=== PATIENT | female | born 1985 | race Caucasian/White ===

== ENCOUNTER 2023-10-19 10:38 | Emergency (ER) | payer OTHER, SELFPAY ==
[2023-10-19] VITALS (16 sets, daily range): BP systolic 96–109; BP diastolic 62–85; BMI 23.2
[2023-10-19 10:47] LABS: Glucose - Point of Care 81 mg/dl (70-99)
--- NOTE | 2023-10-19 10:54 | ED.GENMED ---
Addendum entered and electronically signed by Connie Anne PA-C 10/22/23 09:56:
10/22/23: Urine culture growing >100,000 E.coli. Spoke with Lashon from [facility] and relayed result. Result faxed to facility by special investigation unit investigator.
Original Note:
History of Present Illness
General
Chief Complaint: Change in Mental Status
Source: patient and ambulance crew
Exam Limitations: altered mental status
Time Seen by Provider: 10/19/23 10:41
Nursing documentation reviewed up to this point in time: agreed with
History of Present Illness
History of Present Illness:
Patient presents to ED from [facility], secondary to depressed mental status noted, shortly after receiving her morning medications, consisting of Klonopin, Benadryl, and buprenorphine. Upon arrival, patient is found to be
somnolent, but easily arousable. Patient denies use of any other illicit medications. Denies headache. Denies chest pain. Denies shortness of breath. Patient is complaining of chronic lower back pain. Denies nausea or vomiting. Denies recent
illness. Patient has been at [facility] for the past 3 days.
Review of Systems
Review of Systems
Allergies reviewed?: Yes
Unable to obtain full review of systems at this time due to: other (Altered mental status)
All Other Systems: Not applicable
Phy Exam
Physical Exam
Physical Exam:
Physical Exam
General: no apparent distress, not acutely ill. afebrile.
Neck: supple. no meningeal signs. normal posterior pharynx
Heart: s1/s2 regular rate and rhythm, no murmur. equal radial pulses.
Lungs: no acute respiratory distress. clear bilaterally
Abdomen: normal bowel sounds. not tender. no CVAT
Neuro: somnolent but easily arousable.. no focal neurological deficits
Skin: no rash. well healed, multiple punctured wounds noted over b/l LE, without active bleeding/drainage or surrounding erythema
Psychiatric: well kept. interactive and cooperative
Extremities: no edema. no calf tenderness.
Course
Orders/Labs/Results
Orders:
Orders
10/19/23 10:48
Test Result ONCE
10/19/23 11:47
Basic Metabolic Panel Urgent
Complete Blood Count/No Diff Urgent
Drug Screen, Urine [Urine Drug Abuse Screen] Urgent
Date Specimen was Collected: 10/19/23
Time Specimen was Collected: 11:15
Fentanyl, Urine Urgent
HCG, Serum Qualitative Screen Urgent
Magnesium Urgent
TSH Urgent
Urinalysis Reflex To Culture Urgent
Date Specimen was Collected: 10/19/23
Time Specimen was Collected: 11:15
Urine Microscopic Reflex Cult Urgent
Urine Culture Urgent
LAZARA Source: U
Specimen Description:
Date Specimen was Collected: 10/19/23
Time Specimen was Collected: 11:15
10/19/23 12:23
0.9% Sodium Chloride 1000 ml [Nss] 1,000 ml IV BOLUS
Abnormal Lab Results
10/19/23
11:47
WBC 4.2 L 10^3/uL
(4.8-10.8)
Hct 36.7 L %
(37.0-47.0)
Glucose 65 L mg/dl
(70-99)
Urine Nitrite (Reflex) Positive A
(Negative)
Urine Bacteria (Reflex) Many A
(Negative)
Ur Buprenorphine Positive H
(Negative)
Urine Fentanyl Screen Positive H
(Negative)
Ur Tricyclics Screen Positive H
(Negative)
Ur Amphetamines Screen Positive H
(Negative)
U Methamphetamines Scrn Positive H
(Negative)
Urine Cocaine Screen Positive H
(Negative)
10/19/23 11:47
10/19/23 11:47
Vital Signs
Initial and Last Documented VS:
Initial Vital Signs
BP
109/85
10/19/23 10:44
Last Documented Vital Signs
Temp Pulse Resp BP Pulse Ox
97.3 F 99 15 98/64 98
10/19/23 10:48 10/19/23 17:30 10/19/23 17:30 10/19/23 17:30 10/19/23 17:30
MDM/Problems Addressed
MDM/Problems Addressed:
Patient becoming more arousable during observation ED, without any complaints nor any neurological deficit noted. Patient remains hemodynamically stable. Patient was able to tolerate lunch and oral fluids. Patient will be observed further and if
becomes more lucid, patient may be discharged back to [facility]. Patient's presenting symptoms likely secondary to provided medications this a.m., which may need to be readdressed upon returning.
UA noted, which is likely contaminant, without any nitrites or leuk esterase. Will not start antibiotics at this time.
Urine culture pending.
*Critical Care Note
Total Time (30-74mins, 75-104mins- exclusive of procedures): Not Applicable
ED Attending Note
-
Portions of this chart may have been created with voice recognition software.� Occasional wrong word or��sound alike� substitutions may have occurred due to the inherent limitations of voice recognition software.
Discharge Plan
Departure
Patient Disposition: [facility]
Discharge Problem:
Altered mental status
Instructions: Altered Mental Status (DC)
Prescriptions:
No Action
clonazepam 0.5 mg Tablet
0.5 mg PO .TAPER
Patient Comments:
10/19/2023: 1mg BID from 10/15-10/17, 0.5mg BID from 10/18-10/20, 0.5mg HS from 10/21-10/23
quetiapine 200 mg Tablet
200 mg PO BID
diphenhydramine HCl 25 mg Capsule
25 mg PO BID
bupropion HCl 75 mg Tablet
300 mg PO DAILY
ibuprofen 200 mg Tablet
400 mg PO BIDPRN PRN (Reason: mild pain/fever)
buprenorphine HCl 8 mg Tablet, Sublingual
20 mg SUBLINGUAL DAILY
gabapentin 500 mg capsule
500 mg PO .TAPER
Patient Comments:
10/19/2023: 500mg TID from 10/17-10/18, 600mg BID from 10/19-10/20, 300mg TID from 10/21-10/22, 300mg BID from 10/23-10/24, 300mg HS from 10/25-10/26
Referrals:
[facility],Facility [Family Provider] -
Activity Restrictions/Additional Instructions:
As discussed, you are being discharged back to [facility] for continual care. [facility], as your symptoms may be related to type, as well as number of medications that you may be
taking at once.
Interventions
Interventions:
*Risk Screen - Suicide Last Done: 10/19/23 10:48
*General Assessment Last Done: 10/19/23 10:48
*Neglect/Abuse Screening Last Done: 10/19/23 10:48
ED- Fall Risk Assessment Last Done: 10/19/23 11:01
*ED COVID-19 Vaccine History Last Done: 10/19/23 10:48
*Nursing Disposition Last Done: 10/19/23 17:57
ED- Pulmonary Assessment Last Done: 10/19/23 11:01
ED- Neurological Assessment Last Done: 10/19/23 11:01
ED- Cardiac Assessment Last Done: 10/19/23 11:01
ED Swallowing Screen Last Done: 10/19/23 14:00
Discharge Date and Time
Discharge Date/Time: 10/19/23 17:57
Print Language: BELARUSIAN
[2023-10-19 12:01] LABS: Hematocrit 36.7 % (37.0-47.0); Hemoglobin 12.6 g/dL (12.0-16.0); Mean Corp Hgb Conc. 34.3 g/dL (33.0-37.0); Mean Corpuscular Hgb 29.4 pg (27.0-31.0); Mean Corpuscular Volume 85.7 fL (81.0-99.0); Mean Platelet Volume 8.8 fL (7.4-10.4); Platelet Count 210 10^3/uL (130-400); Red Blood Cell Count 4.28 10^6/uL (4.20-5.40); Red Cell Dist. Width 13.7 % (11.5-14.5); White Blood Cell Count 4.2 10^3/uL (4.8-10.8)
[2023-10-19 12:11] LABS: HCG, Serum Qualitative Screen Negative
[2023-10-19 12:14] LABS: Blood Urea Nitrogen 17 mg/dl (7-17); Calcium 9.5 mg/dl (8.4-10.2); Carbon Dioxide 27 mmol/L (22-30); Chloride 105 mmol/L (98-107); Estimated Creatinine Clearance 91 ml/min; Glucose 65 mg/dl (70-99); Magnesium 2.1 mg/dl (1.6-2.3); Potassium 4.5 mmol/L (3.5-5.1); Sodium 142 mmol/L (135-145); Urine Albumin Negative (Neg - Trace); Urine Bilirubin Negative (Negative); Urine Character Clear (Clear); Urine Color Yellow; Urine Glucose Negative (Negative); Urine Ketone Negative (Negative); Urine Leukocyte Negative (Negative); Urine Nitrite Positive (Negative); Urine Occult Blood Negative (Negative); Urine Urobilinogen Negative (Neg - 1+); eGFR > 60.00
[2023-10-19 12:27] LABS: Amphetamines Positive (Negative)
[2023-10-19 12:28] LABS: Barbiturates Negative (Negative); Benzodiazepines Negative (Negative); Buprenorphine Positive (Negative); Cocaine Positive (Negative); Marijuana Negative (Negative); Methadone Negative (Negative); Methamphetamines Positive (Negative); Opiates Negative (Negative); Phencyclidine Negative (Negative); Tricyclic Antidepressants Positive (Negative)
[2023-10-19 12:29] LABS: Glucose - Point of Care 98 mg/dl (70-99)
[2023-10-19 12:33] LABS: Urine Squamous Cell >30 /LPF (Few)
[2023-10-19] MEDS: NSS 1000 IV (12:33)
[2023-10-19 12:34] LABS: Urine Bacteria Many (Negative); Urine Red Blood Cell None Seen /HPF (0-2); Urine White Cell None Seen /HPF (0-5)
[2023-10-19 12:46] LABS: Fentanyl, Urine Positive (Negative)
== END 2023-10-19 17:57 ==
LOC: EMR 10:38
PROVIDERS: EMERGENCY PHYSICIAN Emergency Medicine
DX: R41.82 Altered mental status, unspecified (principal); R40.0 Somnolence; R56.9 Unspecified convulsions; N19 Unspecified kidney failure; F90.9 Attention-deficit hyperactivity disorder, unspecified type; F41.9 Anxiety disorder, unspecified; F31.9 Bipolar disorder, unspecified; F32.A Depression, unspecified; M54.50 Low back pain, unspecified; G89.29 Other chronic pain; F42.9 Obsessive-compulsive disorder, unspecified
CPT/HCPCS: 99284; 96360; 80048; 80306; 80307; 81003; 81015; 82962; 83735; 84443; 84703; 85027; 87086; 87088; 87186